=== PATIENT | female | born 1930 | race Caucasian/White ===

== ENCOUNTER → 2016-06-15 | Outpatient (CLI) | payer MEDICARE ==
[~2016-06-15] MED LIST: ASPI-482 PO; DULO60CA6 PO; GABA600T2 PO; IBUP-1027 PO; RANI300C PO; SIMV40TA3 PO
--- NOTE | 2016-06-16 06:19 | PAIN ---
DATE OF SERVICE: 06/15/2016 INITIAL CONSULTATION CHIEF COMPLAINT: Low back and left lower extremity pain. HISTORY OF PRESENT ILLNESS: This is an 85-year-old female who presents with history of pain for about 2 years, gradually increasing, not result of any specific injury or action that she is aware of, but getting worse overtime, in the low back bilateral gluteus, low back and left leg, sometimes radiating all the way down into the ankle, mainly the posterior and lateral aspect of the thigh and lower leg on the left side. The patient reports occasionally on the side of the leg but mostly in the back side to the ankle but not into the foot. The patient reports it is stabbing and throbbing with intermittent intensity, but always present, radiating to the left leg and across the low back, worse with walking and changing positions, standing and other activities when she is on her feet. The patient reports she cannot walk with the pain for more than about 5 or 10 minutes. Worse in the morning and also worse in the evenings. The patient reports that it does not awaken her from sleep at night; however, she feels better with lying down or sitting, which helps relieve the pain. The patient reports it does not affect her bowel or bladder control. She does have some inability to walk correctly and is using a cane occasionally, but does not have one with her today. The patient also reports that she has one leg she feels shorter than the other, she feels that her left leg is shorter than the right. The patient reports her disability rating from 0 to 10, 10 being the worst, as a 10 with family and home responsibilities, 7 with social activity, 5 with self-care and 0 with life support activities. The patient reports no complete loss of motor function but significant fatigability, especially in the left leg, with ambulation as noted. PAST MEDICAL HISTORY: Significant for bilateral hearing loss; cataracts; previous cigarette smoking, quit in 1990; previous trigeminal neuralgia history; history of arthritis. PAST SURGICAL HISTORY: Previous surgeries include cataract extraction, cholecystectomy, hysterectomy and craniotomy for decompression of the left trigeminal nerve. CURRENT MEDICATIONS: Include Zantac, simvastatin, daily baby aspirin, ibuprofen, Cymbalta and gabapentin. ALLERGIES: The patient has no known drug allergies. FAMILY HISTORY: Significant for heart disease and hypercholesterolemia. SOCIAL HISTORY: The patient quit smoking many years ago. Does not drink alcohol. She is retired and lives locally with her daughter in [place], [place]. REVIEW OF SYSTEMS: The patient's review of systems is positive for those items mentioned in the history of present illness. All systems are reviewed and otherwise negative. It is complete, full and well documented on the patient's chart. PHYSICAL EXAMINATION: VITAL SIGNS: Today, the patient's blood pressure is 129/71, pulse 76, respirations 18, temperature 98.0 degrees Fahrenheit, height is 5 feet 4 inches. Weight 147 pounds. GENERAL: The patient is awake, alert, oriented, appropriate, very pleasant demeanor. HEENT: Shows normocephalic and atraumatic. Extraocular movements are intact and symmetrical. Oral cavity shows mucous membranes are moist and pink. Dentition is intact. NECK: Shows anterior throat supple without palpable lymphadenopathy noted. Swallow reflex is symmetrical. CHEST: Shows normal on inspection. Breath sounds are clear to auscultation bilaterally. HEART: Shows S1 and S2 clear. No murmurs are auscultated. ABDOMEN: Soft, nontender, nondistended. No palpable organomegaly. No new rebound or guarding demonstrated. BACK: The patient's back shows spine grossly midline. Normal cervical lordotic curvature, thoracic kyphotic curvature, and lumbar lordotic curvature. No previous bruises, lesions, rashes or scars are noted. No tenderness with palpation in the cervical distribution. The patient shows full rotational motion of the cervical spine, both laterally as well as extension and flexion without difficulty. The patient's low back shows symmetry with paraspinous musculature in the lumbar distribution on palpation, shows some mild tenderness with palpation only in the lower lumbar distribution and only diffusely, worse on the left than the right, but present bilaterally. No tenderness over the spinous processes themselves. No tenderness with palpation over the sacrum or sacroiliac regions. The patient does show good rotational motion both laterally greater than 10 degrees right and left as well as extension greater than 10 degrees, forward flexion of 45 degrees without difficulty in the lumbar spine and without pain reported. EXTREMITIES: Lower extremities show deep tendon reflexes 1+ in the patellar and tendo calcaneus tendons are equal. Motor exam is approximately 4 on a scale of 5 with left dorsiflexion and extension and quadriceps and hamstring and 5/5 on the right. Peripheral pulses are 1+, posterior tibial and dorsalis pedis pulses. No peripheral edema is noted. No clubbing, no cyanosis. Lower extremities are warm and dry to touch, equal in color and appearance. Straight leg raise noted to be positive on the left at about 40 degrees leg raise with pain radiating into the lateral thigh and into the posterior calf. This is decreased with knee flexion and the calf pain is relieved. Right side is negative for straight leg raise. Gaenslen's and Ronald's maneuvers are negative for reproduction of pain bilaterally. The patient is able to stand and stand on her toes without significant difficulty and walks with a slight favoring gait, favoring the left lower extremity. Difficult to tell exactly if there is any inequality in the length of the lower extremities; also, the patient feels that she does have this when ambulating. The patient again is not using any assistive devices with her today, walks with a slight limp, favoring the left lower extremity. IMPRESSION: 1. This is an 85-year-old female with approximately 2-year history of increasing low back pain and left lower extremity pain in a radicular fashion. 2. MRI scan of the lumbar spine dated 05/30/2016 showing moderately severe lumbar spine degenerative change with spinal stenosis at L3-L4 with degenerative changes, diffuse disk bulging and some central canal narrowing measuring 9 mm, bilateral lateral recess and foraminal encroachment noted. L4-L5 shows facet spurring and degenerative changes, greater on the left, with bilateral facet joint fluid, ligamentum flavum hypertrophy, canal stenosis noted with diffuse disk bulging and anterolisthesis, foraminal encroachment is greater on the left from degenerative changes as described and L5-S1 shows no focal disk extrusion and central canal maintained. 3. History of arthritis. PLAN: Options were discussed with the patient and her daughter who accompanies her to visit today including conservative medical management, physical therapy, interventional techniques. She would like to follow most conservative course at this time. We will try Medrol Dosepak and we will have physical therapy ordered for lumbar traction, shrinking and stretching exercises as well as conditioning and massage therapies. If not significantly improved after these modalities, we discussed possible lumbar epidural steroid injection. We will try these modalities first and see if she responds favorably, and the patient will follow up in approximately 2 weeks with progress report at that time. She was asked to call the clinic and we will discuss this further. SIVAN EDWARDS MD DR: LEIGHTON/tami JOB#: [id number] / [id number] EVARISTO Choudhary MD
== END | disposition home or self-care (01) ==
LOC: PNCL 08:22
PROVIDERS: ATTEND Anesthesiology
DX: M54.5 Low back pain (principal); M79.605 Pain in left leg
CPT/HCPCS: G0463

== ENCOUNTER → 2016-07-05 | Outpatient (CLI) | payer MEDICARE ==
[~2016-07-05] MED LIST changes: +IOHEXOL 180 MG/ML 10 ML VIAL. ONE; +methylPREDNISolone ACETATE 40 MG/ML VIAL. ONE; +methylPREDNISolone ACETATE 80 MG/ML VIAL. ONE
--- NOTE | 2016-07-06 02:44 | PAIN ---
DATE OF SERVICE: 07/05/2016 PROGRESS NOTE DIAGNOSES: Lumbar radiculopathy with lumbar spinal stenosis and lumbar degenerative disk disease. HISTORY OF PRESENT ILLNESS: An 85-year-old female who returns for followup status post initial evaluation and Medrol Dosepak without significant long lasting results. The patient reports pain was better for the first 2-3 days with the Dosepak, but the pain came right back in the low back, left lower extremity as it was previously, radiated to the left lateral anterior aspect of the thigh and lower leg posteriorly and medially. The patient reports it is about 8 on a scale of 10, is worse with ambulation, worse with activity, standing, walking, changing positions. The patient reports no new motor or sensory deficits; however, no new bowel or bladder incontinence or other complaints, and is interested in trying some physical therapy as well, which we will make arrangements for her. PHYSICAL EXAMINATION: VITAL SIGNS: The patient's blood pressure is 111/62, pulse 77, respirations 18, temperature 97.7 degrees Fahrenheit, height is 5 feet 4 inches, weight is 149 pounds. GENERAL: The patient is awake, alert, oriented, appropriate, very pleasant demeanor. HEENT: Head shows normocephalic, atraumatic. Extraocular movements are intact, symmetrical. Oral cavity, mucous membranes are moist and pink. Dentition is intact. NECK: Shows anterior throat supple without palpable lymphadenopathy noted. Swallow reflex is symmetrical. CHEST: Shows normal on inspection. Breath sounds clear to auscultation bilaterally. HEART: Shows S1 and S2 clear. No murmurs auscultated. ABDOMEN: Soft, nontender, nondistended. No palpable organomegaly is noted. BACK: Shows spine grossly midline. Lumbar paraspinous muscle shows symmetrical in the paraspinous muscles on inspection with palpation shows some moderate tenderness with palpation in the middle and lower distribution of the lumbar paraspinous muscles, but only diffusely without specific radiation. The patient shows good rotation and motion of the lumbar spine without difficulty. EXTREMITIES: Lower extremities showed deep tendon reflexes 1+ in the patellar and tendo calcaneus tendons. Motor exam is approximately 4 on a scale of 5 with left dorsiflexion, extension and 5/5 on the right. Peripheral pulses are 1+ posterior tibial and dorsalis pedis pulses. PLAN: Options were discussed with the patient and the patient's daughter who accompanies her to visit today. We will proceed with a lumbar epidural steroid injection with fluoroscopic guidance. Risks were discussed including but not limited to bleeding, infection, possibility of epidural hematoma, subsequent neurologic compromise, dural punctures, headaches, spinal cord and/or nerve damage, side effects of steroid medication and poor results regarding pain control. The patient understands and wishes to proceed. The patient will return to clinic in approximately 2 weeks for followup. She was counseled as to return appointment, activity level and side effects to be aware of. DIAGNOSES: Lumbar radiculopathy with lumbar spinal stenosis and lumbar degenerative disk disease. PROCEDURES: Lumbar epidural steroid injection in translaminar approach at the L4-L5 level using C-arm fluoroscopic guidance under sterile prep and drape using local anesthesia, medications injected is 120 mg Depo-Medrol with 10 mL of preservative-free normal saline and 2 mL Isovue for contrast. CONDITION AT DISCHARGE: Stable. The patient tolerated procedure well, had no complications. SIVAN EDWARDS MD DR: LEIGHTON/tami JOB#: [id number] / [id number]
== END | disposition home or self-care (01) ==
LOC: PNCL 09:02
PROVIDERS: ATTEND Anesthesiology
DX: M51.16 Intervertebral disc disorders with radiculopathy, lumbar region (principal); M48.06 Spinal stenosis, lumbar region
CPT/HCPCS: 62323; J1030; J1040

== ENCOUNTER → 2016-08-02 | Outpatient (CLI) | payer BC, MEDICARE ==
[~2016-08-02] MED LIST changes: -IOHEXOL 180 MG/ML 10 ML VIAL. ONE; -methylPREDNISolone ACETATE 40 MG/ML VIAL. ONE; -methylPREDNISolone ACETATE 80 MG/ML VIAL. ONE
--- NOTE | 2016-08-03 07:15 | PAIN ---
DATE OF SERVICE: 08/02/2016 PROGRESS NOTE FOR PAIN CLINIC DIAGNOSIS: Lumbar radiculopathy with lumbar degenerative disk disease, lumbar spinal stenosis. HISTORY OF PRESENT ILLNESS: The patient is an 85-year-old female who returns for followup status post lumbar epidural steroid injection x 1. The patient reports no significant improvement and the pain is still in the low back and left lower extremity, mostly in the lateral posterior thigh, posterior lateral aspect of the lower leg, medial lower leg to the foot. The patient reports it is sharp and shooting, is a 10 on a scale of 10. She called earlier last week and we tried some tramadol, made her very sedated, tried breaking the tablet in half and was not decreasing the pain significantly enough. The patient has been increasing her Neurontin; however, just saw her neurologist this morning, who recommended that as well, as a neurosurgical consult for evaluation of her low back and left lower extremity pain that the patient does have at the L4-L5 area in the lumbar spine with significant narrowing and protruding disk. The patient reports otherwise no new motor or sensory deficits, no new bowel or bladder incontinence, still significant pain in the left leg, making it difficult to walk, stand, change positions and awakening her from sleep at night once again. PHYSICAL EXAMINATION: VITAL SIGNS: Today, the patient's blood pressure is 121/79, pulse 93, respirations 20, temperature is 98.0 degrees Fahrenheit, height is 5 feet 4 inches, weight is 146 pounds. GENERAL: The patient is awake, alert, oriented, appropriate, has a very pleasant demeanor. The patient is accompanied by her daughter. HEENT: Shows normocephalic, atraumatic. Extraocular movements are intact, symmetrical. Oral cavity, mucous membranes are moist and pink. NECK: Shows anterior throat supple. CHEST: Shows breath sounds clear to auscultation bilaterally. HEART: Shows S1 and S2 clear. ABDOMEN: Soft, nontender, nondistended. BACK: Shows spine grossly in the midline. Lumbar paraspinous muscle shows some moderate tenderness, more on the left than the right, but appears roughly symmetrical on inspection with the right side. No difficulty with rotational motion both laterally as well as extension and flexion. EXTREMITIES: Lower extremities show deep tendon reflexes at 1+ in the patellar tendons. Motor exam is strong with approximately 4 on a scale of 5 with left dorsiflexion, extension and 5/5 on the right. PLAN: Options were discussed with the patient. The patient's old chart was reviewed as was her current medication regimen and updated. Current review of systems updated today as well. The patient would like to see neurosurgical evaluation. We will make the arrangements for this. She would also like to talk to the rest of her family members first and like to talk to her primary care physician regarding referral information for preferred neurosurgical evaluation. We will have the patient return on an as needed basis at this time. SIVAN EDWARDS MD DR: LEIGHTON/tami JOB#: [id number] / [id number]
== END | disposition home or self-care (01) ==
LOC: PNCL 09:42
PROVIDERS: ATTEND Anesthesiology
DX: M51.16 Intervertebral disc disorders with radiculopathy, lumbar region (principal); M48.06 Spinal stenosis, lumbar region
CPT/HCPCS: G0463

== ENCOUNTER → 2018-05-13 | Outpatient (CLI) | payer BC ==
[~2018-05-13] MED LIST changes: -GABA600T2 PO; +GABA600T7 PO; +IOHEXOL 240 MG/ML 50ML VIAL. PO ONE; +IOHEXOL 300 MG/ML 100ML VIAL. IV ONE; +PREG75CA PO
--- NOTE | 2018-05-13 17:37 | KCIC ---
PQRS Compliance statement: One or more of the following individualized dose reduction techniques were utilized for this examination: 1. Automated exposure control. 2. Adjustment of the mA and/or kV according to patient size. 3. Use of iterative reconstruction technique. Indication:Right groin pain. TECHNIQUE: CT abdomen and pelvis with IV contrast with multiplanar reformats. COMPARISON: None FINDINGS: Heart is normal in size. No pericardial or pleural effusion. Small sliding hiatal hernia. 4 mm nodule in the right middle lobe (series 3 image 3). 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 Otherwise, liver, spleen, pancreas, adrenals within normal limits. Status post cholecystectomy. Diffuse dilation of the CBD most likely secondary to reservoir effect from cholecystitis. Couple of 3 mm bilateral nonobstructing renal stones. Simple cysts in the left kidney the largest measuring 2.9 x 2.6 cm. No free pelvic fluid or ascites. Status post hysterectomy. Simple right lower pole renal cyst measuring 3.1 x 2.4 cm. Moderate diffuse colonic stool burden. No bowel obstruction. Urinary bladder is decompressed. Bilateral ovaries are seen. No suspicious bony lesion. Multilevel degenerative disc disease is seen in the lumbar spine. IMPRESSION: 1. Couple of bilateral nonobstructing renal stones. 2. 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 Nonemergent ultrasound can be obtained to confirm. 3. Solitary 4 mm nodule in the right middle lobe. Nonemergent CT chest in 4-6 months recommended. Electronically signed by: Tanner Weldon DO (05/13/2018 5:32 PM) [facility]
== END | disposition home or self-care (01) ==
LOC: KCIC CT 11:00
PROVIDERS: ATTEND Internal Medicine Gastroenterology
DX: N20.0 Calculus of kidney (principal); K44.9 Diaphragmatic hernia without obstruction or gangrene; N28.1 Cyst of kidney, acquired; R91.1 Solitary pulmonary nodule; M51.36 Other intervertebral disc degeneration, lumbar region; Z90.710 Acquired absence of both cervix and uterus; Z90.49 Acquired absence of other specified parts of digestive tract
CPT/HCPCS: 74177; 82565; Q9966; Q9967